=== PATIENT | male | born 1990 | race African-American/Black ===

== ENCOUNTER 2021-10-28 10:11 | Emergency (ER) | payer MEDICARE ==
[~2021-10-28] VITALS: Ht 177.8 cm; Wt 198.7 kg
[2021-10-28] MEDS ORDERED: KETOROLAC TROMETHAMINE 60 MG/2 ML VIAL IM ONE (10:45)
[2021-10-28] MEDS ORDERED: HYDROCODONE/APAP 10MG-325MG TAB PO ONE (10:45)
== END 2021-10-28 11:57 | disposition home or self-care (01) ==
LOC: ER 10:13
DX: R07.89 Other chest pain (principal); I10 Essential (primary) hypertension; J98.4 Other disorders of lung; F17.210 Nicotine dependence, cigarettes, uncomplicated
CPT/HCPCS: 71101; 99283; J1885